=== PATIENT | female | born 1990 | race Caucasian/White ===

== ENCOUNTER 2017-06-14 12:15 | Inpatient (IN) | payer OTHER ==
--- NOTE | 2017-06-14 12:55 | US ---
Biophysical profile: Multiple real-time images were obtained transabdominally. Comparison: Previous studies are available, most recent is 06/11/17. Dates: LMP: LMP given as 09/24/16, LUKE 07/01/17, gestational age 37 weeks 4 days Current ultrasound: LUKE 07/01/17, gestational age 37 weeks 4 days Earliest ultrasound (02/25/17): LUKE 07/07/17, gestational age 36 weeks 5 days presentation: Cephalic Placenta: Anterior Amniotic fluid: NEIL 11.5 cm Measurements: BPD: 9.07 cm - 36 weeks 6 days Head circumference: 33.13 cm - 37 weeks 6 days Abdominal circumference: 34.65 cm - 38 weeks 4 days Femur length: 7.17 cm - 36 weeks 6 days Estimated weight: 3320 g (7 lbs. 5 oz.), estimated weight at the 67th percentile for age by ultrasound Heart rate: 152 bpm Cervical length: Not measured, not seen Growth curves: Various growth parameters were obtained. Growth felt to be appropriate from prior exams. Biophysical profile: movement 0, breathing movement 0, tone 0, amniotic fluid volume 2 Impression: 1. Single intrauterine gestation currently cephalic in presentation. Dates as noted above. 2. growth is felt to be appropriate from prior exams. 3. 2 out of 8 for biophysical profile. Scanning technologist gave a preliminary report to Dr. Jimenez Diagnostic code #5
[2017-06-14] MEDS ORDERED: Sodium Chloride 0.9% 10 ML Syringe FLUSH PRN (14:58)
[2017-06-14] MEDS ORDERED: Ondansetron 4 MG/2 ML SDV IVPUSH PRN (14:58)
[2017-06-14] MEDS ORDERED: Nalbuphine 20 MG/1 ML Amp IVPUSH PRN (14:58)
[2017-06-14] MEDS ORDERED: Oxytocin/Lactated Ringers 10 UNIT/1,000 ML BAG IV SCH ×2 (15:00→15:15)
[2017-06-14] MEDS ORDERED: Lactated Ringers 1,000 ML IV SCH (15:00)
--- NOTE | 2017-06-14 20:07 | PCM.LDHP ---
L&D History of Present Illness - General Date of Service: 06/14/17 Admit Problem/Dx: Patient Status Order with Admit Dx/Problem 06/14/17 13:38 Patient Status [ADT] Routine 06/14/17 14:58 Patient Status [ADT] Routine Admission Diagnosis/Problem Admission Diagnosis/Problem 06/14/17 19:51 27-year-old 3 para 2001 female at 37-4/7 weeks gestational age, nonreassuring testing with BPP score 2/10 Source of Information: Patient History Limitations: Reports: No Limitations - History of Present Illness Introduction:: Pricilla is a 27-year-old 3 para 2002 white female who is presently at 37 -4/7 weeks gestational age as dated byA last menstrual period starting 2015 giving an LUKE of 07/01/2017. Patient was seen in clinic today with complaints of decreased activity. She is evaluated and nonstress test which was nonreactive. She was sent for a biophysical profile which returned showing 2 points only for amniotic fluid. When sent to labor and delivery for extended monitoring patient failed to have a reactive nonstress test in the first hour. Decision was made at that time to proceed with induction of labor. Her cervix then was 3 cm dilated, 90% effaced, -3 station, posterior to mid position, bag magdaleno was intact. Procedure of Pitocin induction with eventual rupture membranes were discussed with patient including risks, benefits , alternatives of care. She appeared to understand and wish to proceed. FAMILY AND DIVORCE LEGAL ASSISTANT history: 3 para 2001. Last menstrual period started on 2015. It was a definite. With monthly menses occurring every 28 days. No control time conception. Menarche age 10. Positive hCG was on 11/01/2016. Ultrasounds obtained 12/17/2016 and 02/25/2017 were supportive of her LMP dates. Done on 06/11/2017 and Evaluation of Decreased Activity Showed a BPP of 8/ 8. Estimated Growth at that time was approximately 11 days ahead of schedule. course patient was initially seen on 12/17/2016 at 12 weeks gestational age. Weight gain during the course of was from 229 pounds up to 250 pounds for a 21 pound weight gain. Her vital signs remained stable throughout the . heart rate was appropriate and fundal height growth was appropriate. course was relatively unremarkable. She did have an abnormal 1 hour GTT at 163 mg/dL. A three-hour GTT showed no evidence of gestational diabetes with values of 88 at fasting, 189 at one hour, 122 at 2 hours and 76 at 3 hours post Glucola. Patient has had some anemia in and was started on iron therapy. She had an exposure to chickenpox but did not have an active infection. Group B strep screen was negative. Climbed genetic evaluation. She had some gastroesophageal reflux disease. She plans to nurse. She has recurrent cold sores. She is also had recurrent urinary tract infection has been treated with prophylaxis with Keflex 500 mg weekly. Patient also has a history of maximal baby. 10 pounds even with her last . Previous pregnancies include a male infant born 08/23/2040 weeks gestational age 8 lbs. 13 oz., [facility], child's name is darlin. Second delivered on 01/29/2012 at 40 weeks gestational age, 10 lbs. 7 oz. male, normal spontaneous vaginal delivery, [facility], child's name is Ha. Laboratory testing and shows blood to be a positive, negative anti- screen. Hemoglobin at first visit was 11.8. Platelets are 256,000. She is rubella immune. RPR is nonreactive. Initial urine culture showed Escherichia coli sensitive to nitrofurantoin with which it was treated. Hepatitis B surface antigen test was negative. HIV assay was negative. GC and Chlamydia were both negative. Her hemoglobin at second trimester was 11.8. Platelets are 288,000. Group B strep screen was negative. Allergies: none Medications: 1. Cephalexin 500 mg by mouth every week prophylactically 2. Acyclovir 5% external ointment up to 6 times a day with active oral herpes outbreak 3. Iron in the form of ferrous sulfate 142 mg per day 4. Tylenol when necessary 5. vitamins 1 daily 6. Tums antacids when necessary Past medical history: 1. Normal spontaneous vaginal delivery 2. 2. History of macrosomic AB Past surgical history: 1. Oral surgery 2006 2. Laparoscopic cholecystectomy 2012 Family history: Mother is alive and with adult onset diabetes mellitus. Father is alive with hypercholesterolemia. One sister is alive and well. One brother is alive and well. Maternal grandmother is alive with hypertension and history. Maternal grandfather is secondary to an ID in his late 80s. Paternal grandmother , cause unknown. Paternal grandfather at age 49 from heart disease. No bleeding, clotting, and seizure problems noted in the family. Social history: The patient is . is Colin Flores. She does not use any significant loss of alcohol, drugs tobacco. They live in [place]. 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 Review of systems: Skin negative Cardiovascular without chest pain or exercise intolerance Respiratory without shortness of breath, asthma or infection symptoms Breasts without dimpling discharge but with changes in size secondary to GI normal changes associated with only Extremities/musculoskeletal without concerns Neurological negative Physical exam: In general patient is well-developed, well-nourished, pleasant female stated age in no acute distress. Skin is warm and dry without lesions. HEENT, neck and back within normal limits Cardiovascular exam shows regular rate and rhythm without murmurs. Lungs are clear with good breath sounds in all lung montelongo. Breast exam done early in the was unremarkable and not repeated at this time. Patient does plan to nurse. Abdomen is protuberant with with fundal height of 38 cm. Baby in a vertex presentation Cervix evaluation clinic 3 cm, 90% effaced, -3 station, mid position, very soft Extremities and neurological exam within normal limits. - Related Data Allergies/Adverse Reactions: Allergies Allergy/AdvReac Type Severity Reaction Status Date / Time No Known Allergies Allergy Verified 12/24/14 12:08 Past Medical History Gastrointestinal History: Reports: GERD Genitourinary History: Reports: UTI, Recurrent FAMILY AND DIVORCE LEGAL ASSISTANT History: Reports: - Past Surgical History Other HEENT Surgeries/Procedures: wisdom teeth 2007 GI Surgical History: Reports: None Female Surgical History: Reports: None Social & Family History - Family History Family Medical History: Noncontributory - Tobacco Use Smoking Status *Q: Never Smoker - Caffeine Use Caffeine Use: Reports: Coffee - Recreational Drug Use Recreational Drug Use: No H&P Review of Systems - Review of Systems: Review Of Systems: See Below L&D Exam - Exam Exam: See Below - Vital Signs Vital Signs: Last Vital Signs Temp 36.7 C 06/14/17 13:38 Pulse 81 06/14/17 13:38 Resp 20 06/14/17 13:38 BP 123/72 06/14/17 13:38 Pulse Ox Weight: 113.852 kg - Patient Data Lab Results Last 24 hrs: Laboratory Results - last 24 hr 06/14/17 Range/Units 15:50 WBC 9.61 (3.98-10.04) K/mm3 RBC 4.07 (3.98-5.22) M/mm3 Hgb 12.2 (11.2-15.7) gm/L Hct 36.3 (34.1-44.9) % MCV 89.2 (79.4-94.8) fl MCH 30.0 (25.6-32.2) pg MCHC 33.6 (32.2-35.5) g/dl RDW Std Deviation 44.2 (36.4-46.3) fL Plt Count 264 (182-369) K/mm3 MPV 9.2 L (9.4-12.3) fl Neut % (Auto) 73.0 H (34.0-71.1) % Lymph % (Auto) 21.5 (19.3-51.7) % [place] % (Auto) 4.9 (4.7-12.5) % Eos % (Auto) 0.3 L (0.7-5.8) Baso % (Auto) 0.1 (0.1-1.2) % Neut # (Auto) 7.01 H (1.56-6.13) K/mm3 Lymph # (Auto) 2.07 (1.18-3.74) K/mm3 [place] # (Auto) 0.47 H (0.24-0.36) K/mm3 Eos # (Auto) 0.03 L (0.04-0.36) K/mm3 Baso # (Auto) 0.01 (0.01-0.08) K/mm3 Result Diagrams: 06/14/17 15:50 Problem List Initiated/Reviewed/Updated: Yes Orders Last 24hrs: Active Orders 24 hr Category Date Time Status Patient Status [ADT] Routine ADT 06/14/17 13:38 Active Patient Status [ADT] Routine ADT 06/14/17 14:58 Active Activity as Tolerated [RC] PFP Care 06/14/17 14:58 Active Communication Order [RC] ASDIRECTED Care 06/14/17 14:58 Active Heart Tones [RC] ASDIRECTED Care 06/14/17 14:58 Active Monitoring [RC] CONTINUOUS Care 06/14/17 13:40 Active Non Stress Test [RC] PER UNIT ROUTINE Care 06/14/17 13:38 Active Notify Provider [RC] PFP Care 06/14/17 14:58 Active Notify Provider [RC] PRN Care 06/14/17 14:58 Active Peripheral IV Care [RC] . DIRECTED Care 06/14/17 14:58 Active Up ad Juliet [RC] ASDIRECTED Care 06/14/17 13:39 Active Vital Signs [RC] PER UNIT ROUTINE Care 06/14/17 13:38 Active Vital Signs [RC] PER UNIT ROUTINE Care 06/14/17 14:58 Active Clear Liquid Diet [DIET] Diet 06/14/17 Lunch Active Lactated Ringers [Ringers, Lactated] 1,000 ml Med 06/14/17 15:00 Active IV ASDIRECTED Nalbuphine [Nubain] Med 06/14/17 14:58 Active 10 mg IVPUSH Q2H PRN Ondansetron [Zofran] Med 06/14/17 14:58 Active 4 mg IVPUSH Q4H PRN Oxytocin/Lactated Ringers [Pitocin in LR 10 Units/1,000 Med 06/14/17 15:00 Active ML] 10 unit in 1,000 ml IV TITRATE Oxytocin/Lactated Ringers [Pitocin in LR 10 Units/1,000 Med 06/14/17 15:15 Active ML] 10 unit in 1,000 ml IV TITRATE Sodium Chloride 0.9% [Saline Flush] Med 06/14/17 14:58 Active 10 ml FLUSH ASDIRECTED PRN Electronic Heart Tones Ext w TOCO [WOMSER] Oth 06/14/17 14:58 Ordered Routine Electronic Heart Tones Internal [WOMSER] Per Unit Oth 06/14/17 14:58 Ordered Routine Peripheral IV Insertion Adult [OM.PC] Routine Oth 06/14/17 14:58 Ordered Resuscitation Status Routine Resus Stat 06/14/17 13:38 Ordered Medication Orders Lactated Ringer's (Ringers, Lactated) 1,000 mls @ 100 mls/hr IV ASDIRECTED EZEQUIEL Last Admin: 06/14/17 15:50 Dose: 100 mls/hr Oxytocin/Lactated Ringer's (Pitocin In Lr 10 Units/1,000 Ml) 10 unit in 1,000 mls @ 500 mls/hr IV TITRATE EZEQUIEL Oxytocin/Lactated Ringer's (Pitocin In Lr 10 Units/1,000 Ml) 10 unit in 1,000 mls @ 12 mls/hr IV TITRATE EZEQUIEL; 2 MUNITS/MIN PRN Reason: Protocol Last Titration: 06/14/17 19:42 Dose: 10 munits/min, 60 mls/hr Titration: 06/14/17 17:36 Dose: 8 munits/min, 48 mls/hr Titration: 06/14/17 17:06 Dose: 6 munits/min, 36 mls/hr Titration: 06/14/17 16:35 Dose: 4 munits/min, 24 mls/hr Admin: 06/14/17 15:50 Dose: 2 munits/min, 12 mls/hr Nalbuphine HCl (Nubain) 10 mg IVPUSH Q2H PRN PRN Reason: Pain (moderate 4-6) Ondansetron HCl (Zofran) 4 mg IVPUSH Q4H PRN PRN Reason: Nausea/Vomiting Sodium Chloride (Saline Flush) 10 ml FLUSH ASDIRECTED PRN PRN Reason: Keep Vein Open Assessment/Plan Comment:: Assessment: 1. 37-4/7 week intrauterine , nonreassuring testing with biophysical profile score of 2 out of 10. 2. scored for amnio fluid volume 2. Group B strep screen negative 3. History of 2 previous pregnancies that occurred without incident 4. Patient plans to nurse 5. Patient is up-to-date regarding her T dap with immunization occurring on 05/13. 6. Patient is rubella immune 7. Patient wishes to do this naturally. 8. History of macrosomic baby at 10 poundsno problems with labor 9. History of oral herpes. Plan: 1. Anticipate normal spontaneous vaginal delivery 2. Support decision to nurse. 3. Epidural when necessary for pain control 4. CBC 5. Electronic monitoring in labor
--- NOTE | 2017-06-14 21:09 | PCM.SN ---
- Free Text/Narrative Note: Pricilla is a 27-year-old 3 now para 3003 white female who is admitted earlier this afternoon with concerns about decreased activity. Was seen in clinic, was found to have a non-reactive nonstress test. She underwent a biophysical profile in radiology and had a resultant score of 2/10. Extended evaluation in labor and delivery showed a nonreactive NST. Decision was made to proceed with induction of labor with continuous monitoring. Pitocin was started, membranes were ruptured when the head was brought down to -1 station. She proceeded rapidly to complete cervical dilation by approximately 2045 hrs. on 06/14/2017. She pushed with one contraction and delivered a viable, antony , female with Apgars of 8 and 9, a length of __ and a weight of__ in a left occiput anterior position. The baby was suctioned and placed up on mom's abdomen. Cord was allowed to pulsate for approximately 60 seconds, was then clamped and cut by the father. Patient's estimated blood loss was 200 mL. She received IV Pitocin after delivery of the baby. Cord blood was obtained. The placenta delivered in a Schulzpresentation, appeared intact and complete. It had a three-vessel umbilical cord. No lacerations occurred. No stitches were needed. Patient plans to nurse. Condition: good
[2017-06-14] MEDS ORDERED: Lanolin 100% Cream 7 GM Tube TOP PRN (22:22)
[2017-06-14] MEDS ORDERED: Acetaminophen 325 MG Tab PO PRN (22:22)
[2017-06-14] MEDS ORDERED: Docusate Sodium 100 MG Cap PO PRN (22:22)
[2017-06-14] MEDS ORDERED: Benzocaine/Menthol 20%-0.5% Spray 56 GM Canister TOP PRN (22:22)
[2017-06-14] MEDS ORDERED: Ibuprofen 600 MG Tab PO PRN (22:22)
[2017-06-14] MEDS ORDERED: Witch Hazel Medicated Pads 100/Jar TOP PRN (22:22)
[2017-06-15] MEDS ORDERED: Prenatal Multivitamin with Calcium/Folic Acid/Iron Tab PO SCH (09:00)
--- NOTE | 2017-06-15 09:57 | PCM.DCSUM1 ---
Discharge Summary - Hospital Course Free Text/Narrative:: Pricilla is a 27-year-old 3 now para 3003 white female who is admitted earlier yesterday with concerns about decreased activity. Was seen in clinic, was found to have a non-reactive nonstress test. She underwent a biophysical profile in radiology and had a resultant score of 2/10. Extended evaluation in labor and delivery showed a nonreactive NST. Decision was made to proceed with induction of labor with continuous monitoring. Pitocin was started, membranes were ruptured when the head was brought down to -1 station. She proceeded rapidly to complete cervical dilation by approximately 2045 hrs. on 06/14/2017. She pushed with one contraction and delivered a viable, antony , female infant with Apgars of 8 and 9, a length of 22 and a weight of 3550 g_ in a left occiput anterior position. The baby was suctioned and placed up on mom 's abdomen. Cord was allowed to pulsate for approximately 60 seconds, was then clamped and cut by the father. Patient's estimated blood loss was 200 mL. She received IV Pitocin after delivery of the baby. Cord blood was obtained. The placenta delivered in a Helen presentation, appeared intact and complete. It had a three-vessel umbilical cord. No lacerations occurred. No stitches were needed. Patient plans to nurse. patient was done well. She is nursing without problems and ambulating well. She has minimal lochia. She is voiding well. - Discharge Data Discharge Date: 06/15/17 Discharge Disposition: Home, Self-Care 01 Condition: Good - Patient Instructions Diet: Regular Diet as Tolerated (nursing diet was increased calories and calcium as directed.) Activity: As Tolerated (no intercourse or tampons until seen back in clinic) Driving: May Drive Today Showering/Bathing: May Shower (may take a bath) Notify Provider of: Fever, Increased Pain, Swelling and Redness, Nausea and/or Vomiting - Discharge Plan Home Medications: Home Meds Ibuprofen [IJD: Ibuprofen] 600 mg PO Q4H PRN #30 tablet 06/15/17 [Rx] Vit with Ca/FA/Iron [ Plus Iron] 1 each PO DAILY tablet [Rx] Patient Handouts: Home Care Instructions for Mom Referrals: David Jimenez MD [Primary Care Provider] - [facility] - Discharge Summary/Plan Comment DC Time >30 min.: No Discharge Summary/Plan Comment: discharge instructions: 1. Discharge home 2. Regular, high fiber, nursing diet with increased calcium and calories as directed. 3. Routine precautions given concern increased pain, bleeding, temperature, signs/symptoms of DVT/PE 4. Activity and follow-up discussed in detail. 5. Indications per home medication was printed, discussed with and given to the patient. [facility]. [facility] Diagnosis: 37-4/7 week intrauterine , nonreassuring testing upon admission- now delivered Condition: Good - Patient Data Vitals - Most Recent: Last Vital Signs Temp 36.2 C 06/15/17 04:05 Pulse 77 06/15/17 04:05 Resp 12 06/15/17 04:05 BP 123/74 06/15/17 04:05 Pulse Ox 97 06/15/17 04:05 Weight - Most Recent: 113.852 kg I&O - Last 24 hours: Intake & Output 06/14/17 06/15/17 06/15/17 22:59 06:59 14:59 Intake Total 1600 Balance 1600 Lab Results - Last 24 hrs: Laboratory Results - last 24 hr 06/14/17 Range/Units 15:50 WBC 9.61 (3.98-10.04) K/mm3 RBC 4.07 (3.98-5.22) M/mm3 Hgb 12.2 (11.2-15.7) gm/L Hct 36.3 (34.1-44.9) % MCV 89.2 (79.4-94.8) fl MCH 30.0 (25.6-32.2) pg MCHC 33.6 (32.2-35.5) g/dl RDW Std Deviation 44.2 (36.4-46.3) fL Plt Count 264 (182-369) K/mm3 MPV 9.2 L (9.4-12.3) fl Neut % (Auto) 73.0 H (34.0-71.1) % Lymph % (Auto) 21.5 (19.3-51.7) % [place] % (Auto) 4.9 (4.7-12.5) % Eos % (Auto) 0.3 L (0.7-5.8) Baso % (Auto) 0.1 (0.1-1.2) % Neut # (Auto) 7.01 H (1.56-6.13) K/mm3 Lymph # (Auto) 2.07 (1.18-3.74) K/mm3 [place] # (Auto) 0.47 H (0.24-0.36) K/mm3 Eos # (Auto) 0.03 L (0.04-0.36) K/mm3 Baso # (Auto) 0.01 (0.01-0.08) K/mm3 Med Orders - Current: Current Medications Acetaminophen (Tylenol) 650 mg PO Q4H PRN PRN Reason: mild pain or fever Benzocaine/Menthol (Dermoplast Pain Relief [place]) 0 gm TOP ASDIRECTED PRN PRN Reason: Perineal Comfort Measure Docusate Sodium (Colace) 100 mg PO BID PRN PRN Reason: Constipation Emollient Ointment (Lansinoh Hpa) 0 gm TOP ASDIRECTED PRN PRN Reason: Sore Nipples Ibuprofen (Motrin) 600 mg PO Q4H PRN PRN Reason: Mild pain or fever Prenat Multivit/[place]/Iron/Folic Ac ( Plus Iron) 1 each PO DAILY EZEQUIEL Last Admin: 06/15/17 08:57 Dose: 1 each Witch Barbara (Tucks) 1 pad TOP ASDIRECTED PRN PRN Reason: Hemorrhoid pain Discontinued Medications Lactated Ringer's (Ringers, Lactated) 1,000 mls @ 100 mls/hr IV ASDIRECTED EZEQUIEL Last Admin: 06/14/17 15:50 Dose: 100 mls/hr Oxytocin/Lactated Ringer's (Pitocin In Lr 10 Units/1,000 Ml) 10 unit in 1,000 mls @ 500 mls/hr IV TITRATE EZEQUIEL Oxytocin/Lactated Ringer's (Pitocin In Lr 10 Units/1,000 Ml) 10 unit in 1,000 mls @ 12 mls/hr IV TITRATE EZEQUIEL; 2 MUNITS/MIN PRN Reason: Protocol Last Titration: 06/14/17 19:42 Dose: 10 munits/min, 60 mls/hr Nalbuphine HCl (Nubain) 10 mg IVPUSH Q2H PRN PRN Reason: Pain (moderate 4-6) Ondansetron HCl (Zofran) 4 mg IVPUSH Q4H PRN PRN Reason: Nausea/Vomiting Sodium Chloride (Saline Flush) 10 ml FLUSH ASDIRECTED PRN PRN Reason: Keep Vein Open *Q Meaningful Use (DIS) - VTE *Q VTE Criteria *Q: - Stroke *Q Stroke Criteria *Q: - AMI *Q AMI Criteria *Q:
[2017-06-15 12:44] VITALS: BP 104/64
== END 2017-06-15 21:40 | disposition home or self-care (01) | DRG 775 ==
LOC: JD.OBCHECK 12:15 → JD.OB 12:16 → JD.OBCHECK 12:16 → JD.OB 12:28 → JD.OBCHECK 12:28 → JD.OB 12:32 → JD.OBCHECK 14:58 → JD.OB 20:45 → OBSVTOIN 20:45
PROVIDERS: ADMIT Obstetrics & Gynecology; ATTEND Obstetrics & Gynecology
PROC: 10E0XZZ Delivery of Products of Conception, External Approach (ICD-10-PCS; principal; 2017-06-14)
PROC: 3E033VJ Introduction of Other Hormone into Peripheral Vein, Percutaneous Approach (ICD-10-PCS; 2017-06-14)
PROC: 10907ZC Drainage of Amniotic Fluid, Therapeutic from Products of Conception, Via Natural or Artificial Opening (ICD-10-PCS; 2017-06-14)
DX: O76 Abnormality in fetal heart rate and rhythm complicating labor and delivery (principal); O28.8 Other abnormal findings on antenatal screening of mother; Z37.0 Single live birth; Z3A.38 38 weeks gestation of pregnancy
CPT/HCPCS: 36415; 76816; 76819; 76819-26; 85025; 85027; A9270-GY; J2590; J7120